=== PATIENT | female | born 1995 | race Native Hawaiian/Other Pacific Islander ===

== ENCOUNTER 2021-09-26 17:42 | Emergency (ER) | payer OTHER ==
[~2021-09-26] VITALS: Ht 157.5 cm; Wt 51.3 kg
[2021-09-26 18:40] LABS: POTASSIUM 3.5 mmol/L (3.6-5.2)
[2021-09-26 18:51] LABS: PLATELET COUNT 260 K/uL (152-353)
[2021-09-26 20:00] VITALS: BP 111/70; TEMP 98.8
== END 2021-09-26 20:00 | disposition home or self-care (01) ==
LOC: ED 17:42
PROVIDERS: Emergency Medicine Emergency Medical Services
DX: O26.891 Other specified pregnancy related conditions, first trimester (principal); Z3A.12 12 weeks gestation of pregnancy
CPT/HCPCS: 80048; 81000; 84702; 85027; 99284